=== PATIENT | female | born 1995 | race Caucasian/White ===

== ENCOUNTER 2016-11-18 22:32 | Emergency (ER) | payer OTHER ==
--- NOTE | 2016-11-19 01:04 | PROVIDER DOCUMENTATION ---
HPI-General Adult <Nick Barron - Last Filed: 11/19/16 03:06> - General Source: patient, family - History of Present Illness -Gen Adult Nature of Presenting Problems: 21 y/o WF c/o waking up from sleep and feeling funny x 1 hour. Mother states she is stressed out over her job and woke up from sleep and noted racing heart and hands shaking. States she "felt funny" and reports a hx of one seizure 4 years ago and was concerned that maybe she was going to get a seizure. Denies any other sxs. <Beth Raza - Last Filed: 11/20/16 21:05> - General Chief Complaint: Anxiety Stated Complaint: ANXIETY Time Seen by Provider: 11/19/16 00:53 Allergies/Adverse Reactions: Patient Allergies Allergy/AdvReac Type Severity Reaction Status Date / Time azithromycin [From Zithromax] AdvReac NAUSEA Verified 06/05/16 23:39 Review of Systems - Adult - REVIEW OF SYSTEMS - ADULT Constitutional: reports: no symptoms reported. denies: chills, fever Eyes: reports: no symptoms reported. denies: blurred vision, double vision Ears, Nose, Mouth & Throat: reports: no symptoms reported. denies: ear pain, nose pain Cardiovascular: reports: no symptoms reported. denies: chest pain, palpitations Respiratory: reports: no symptoms reported. denies: dyspnea on exertion, shortness of breath Gastrointestinal: reports: no symptoms reported. denies: abdominal pain, nausea , vomiting Genitourinary: reports: no symptoms reported. denies: dysuria, frequency Musculoskeletal: reports: no symptoms reported. denies: joint pain, joint swelling Integumentary: reports: no symptoms reported. denies: nail changes, rash Neurological: reports: see HPI, tremors. denies: numbness, paresthesia Psychiatric: reports: no symptoms reported Endocrine: reports: no symptoms reported. denies: cold intolerance, heat intolerance Hematologic/Lymphatic: reports: no symptoms reported. denies: easy bruising, prolonged bleeding Allergic/Immunologic: reports: no symptoms reported All Other Systems: Reviewed and Negative <Beth Raza - Last Filed: 11/20/16 21:05> Past History - Adult - PAST MEDICAL HISTORY-ADULT Review of Records: reports: Nursing Assessment Review, Medications Reviewed Major Childhood Illnesses: reports: denies history Cardiovascular: reports: denies history Respiratory: reports: asthma (as a child, requires not medications for several years) Gastrointestinal: reports: denies history Obstetrical/Gynecological: reports: denies history Genitourinary: reports: denies history Musculoskeletal: reports: denies history Neurological: reports: denies history Endocrine/Immune: reports: denies history Other Conditions: reports: denies history - PRIOR SURGERIES/PROCEDURES Surgical/Procedure History: reports: tonsillectomy - IMMUNIZATION STATUS Childhood Immunizations: See Nurse Assessment Flu Vaccine: See Nurse Assessment - FAMILY HISTORY Family History: reviewed, not pertinent <Beth Raza - Last Filed: 11/20/16 21:05> Physical Exam-General - PHYSICAL EXAM-ADULT Initial Vital Signs Reviewed: Yes - CONSTITUTIONAL General Appearance: alert, mild distress - EYES Eyes: pink conjunctivae - HEAD, EARS, NOSE, MOUTH & THROAT HENMT: normocephalic/atraumatic, moist mucous membranes - NECK Neck: normal inspection - RESPIRATORY Respiratory: lungs clear, normal breath sounds. negative: crackles, rales, rhonchi, stridor, wheezing - CARDIOVASCULAR Cardiovascular: regular rate, rhythm. negative: bradycardia, tachycardia - GASTROINTESTINAL (ABDOMEN) Abdominal Exam: normal bowel sounds, non tender, soft. negative: distended, guarding, rigid - MUSCULOSKELETAL Extremity: normal gait - SKIN Integumentary: normal color, normal turgor, warm/dry - NEUROLOGIC Neurologic: negative: aphasia - PSYCHIATRIC Psych/Mental Status: normal mood/affect, normal thought content, normal thought process, oriented x 3 <Beth Raza - Last Filed: 11/20/16 21:05> Progress - EKG 1 Time of EKG reading by physician:: 01:37 EKG Read and Signed by:: Redd Ellis EKG Interpretation (*Must complete 3 of following elements*): Abnormal Rate: 69 Rhythm: SINUS RHYTHM W/ MARKED SINUS ARRHYTHMIA. [place]: normal QRS: normal <Nick Barron - Last Filed: 11/19/16 03:06> - PLAN OF CARE/RESULTS Progress/Plan/Lab Results: Orders Category Date Time Status EKG [EKG] Stat Ther 11/19/16 01:03 Draft Vital Signs Temp Pulse Resp BP Pulse Ox 11/19/16 02:14 98.4 F 81 18 118/82 100 11/18/16 23:02 98.8 F 81 18 130/74 100 azithromycin [From Zithromax] Adverse Reaction (Verified 06/05/16 23:39) NAUSEA Hydroxyzine Liquid [Atarax] 10 mg PO TID PRN #1 bottle 11/19/[address] Ellis; he agreed with d/c plan. <Beth Raza - Last Filed: 11/20/16 21:05> Departure <Nick Barron - Last Filed: 11/19/16 03:06> - Departure Time of Disposition Order: 01:56 Certified Medical Emergency: Emergent <Beth Raza - Last Filed: 11/20/16 21:05> - Departure DIAGNOSIS: Anxiety Disposition: HOME 01 Condition: Stable Additional Instructions: Take medications as directed. Follow up with PCP for recheck and further management, as needed. ED Follow Up Instructions: You have been treated by a care provider in the Emergency Department. These instructions are being provided to you so you can have an understanding of how to care for yourself upon discharge. Upon discharge from the Emergency Department, you are responsible for making arrangements for follow-up care by a physician of your choice. Take all prescribed medications as directed. Return to the Emergency Department immediately for any new or worsening symptoms. You may call the Physician Referral phone number at [phone] to obtain a list of Physicians who are taking new patients. Prescriptions: Hydroxyzine Liquid [Atarax] 10 mg PO TID PRN #1 bottle PRN Reason: Anxiety Referrals: Mehrdad Carvajal [Primary Care Provider] - Forms: Return to School/Parent Work Instructions: Hydroxyzine oral solution, Panic Attacks, [id number] Attestation - Physician/ Mid-level Attestation Patient care was provided by Mid-level provider ([employer] TECHNICIAN/PA):: Yes Mid-level provider:: Beth Raza Mid-level documentation review:: The Mid-level provider documentation, treatment plan and medical decision making was reviewed by the physician who agrees with all treatment and medical decision making by the MLP. <Beth Raza - Last Filed: 11/20/16 21:05> Physician Attestation
[2016-11-19 02:15] VITALS: BP 118/82
--- NOTE | 2016-11-19 05:46 | EKG Report ---
Test Performed on : 11/19/2016 01:36:48 AM Test Reason : CP Blood Pressure : / mmHG Vent. Rate : 069 BPM Atrial Rate : 069 BPM P-R Int : 142 ms QRS Dur : 084 ms QT Int : 394 ms P-R-T Axes : 064 080 049 degrees QTc Int : 422 ms Sinus rhythm. with marked sinus arrhythmia. Otherwise normal ECG No previous ECGs available Unconfirmed Result
== END 2016-11-19 02:15 | disposition home or self-care (01) ==
LOC: P.ED 22:32
DX: F41.9 Anxiety disorder, unspecified (principal); R94.31 Abnormal electrocardiogram [ECG] [EKG]; R25.1 Tremor, unspecified
CPT/HCPCS: 93005; 99282